=== PATIENT | male | born 1960 | race Caucasian/White ===

== ENCOUNTER 2017-12-25 16:47 | Inpatient (IN) | payer BC ==
[~2017-12-25 16:47] MED LIST: IOPAMIDOL (ISOVUE-300) 100 ML BTL ONE
[2017-12-25] MEDS ORDERED: ERTAPENEM 1 GM VIAL IV ONE (17:35)
--- NOTE | 2017-12-25 17:43 | EDPHY ---
H & P HPI/ROS: Chief complaint: Appendicitis History of present illness: This is a 57-year-old male sent to the emergency department for acute appendicitis. Patient has had intermittent abdominal pain for the last 2 weeks, worsening over the last few days. His primary care doctor got a CT scan today which showed an acute appendicitis. An aneurysm was incidentally noted. Sent here for definitive care. Patient denies other associated signs or symptoms at this time. Review of systems: A 10 point review of systems was obtained and other than described above was negative Smoking Status: Former smoker Physical Exam: General Appearance: Alert, nontoxic. Eyes: Pupils equal and round no pallor or injection. ENT, Mouth: Mucous membranes moist. Respiratory: There are no retractions, lungs are clear to auscultation. Cardiovascular: Regular rate and rhythm. Gastrointestinal: Bowel sounds normal. Abdomen is soft. There is tenderness throughout, most prominent in the right lower quadrant. Neurological: Alert oriented x4. Skin: Warm and dry, no rashes. Musculoskeletal: Neck is supple non tender. Extremities are symmetrical, full range of motion. Psychiatric: Patient is oriented X 3, there is no agitation. Constitutional: Initial Vital Signs Temperature (C) 36.9 C 12/25/17 17:10 Heart Rate 66 12/25/17 17:10 Respiratory Rate 16 12/25/17 17:10 Blood Pressure 154/92 H 12/25/17 17:10 O2 Sat (%) 97 12/25/17 17:10 O2 Delivery Mode Room Air Allergies/Adverse Reactions: No Known Allergies Allergy (Unverified 12/25/17 17:09) Home Medications: Medication Instructions Recorded Atorvastatin Calcium [Lipitor 40 40 mg PO DAILY 12/25/17 mg (*)] Cholecalciferol Vit D3 [Vitamin D3 2,000 units PO DAILY 12/25/17 (*)] Herbals/Supplements -Info Only 1 ea PO DAILY 12/25/17 MDM/Departure - MDM Imaging Results: Imaging Impressions Abdomen CT 12/25/17 14:30 Impression: 1. Appendicitis. 2. There is a 4.3 x 4.3 cm infrarenal abdominal aortic aneurysm noted over a length of 4.9 cm. 3. Segmental age-indeterminate partial thrombus seen in a superior mesenteric venous branch. There is no evidence of portal venous thrombosis. 4. Bilateral renal cortical cysts and bilateral nonobstructive nephrolithiasis. Findings and recommendations for surgical consultation were discussed with SHEBA ROMERO DO at 15:18, on 12/25/2017. Imaging: Discussed imaging studies w/ sheriff's sergeant Radiologist Medications Given: Discontinued Medications Ertapenem (Invanz) 1 gm IV EDNOW ONE PRN Reason: Protocol Stop: 12/25/17 17:36 Last Admin: 12/25/17 18:27 Dose: 1 gm ED Course/Re-evaluation: Patient seen under the supervision of my secondary supervising physician Dr. Ortega Choe. Patient presents to the emergency department for an acute appendicitis. Baseline blood studies are obtained. He is started on Invanz. He is admitted to Dr. Dewey Amador for definitive care. - Depart Disposition: [facility] In[facility] Acute Clinical Impression: Acute appendicitis Qualifiers: Acute appendicitis type: other Qualified Code(s): K35.89 - Other acute appendicitis Condition: Good
[2017-12-25 18:04] LABS: PLATELET COUNT 304 10^3/uL (150-400)
[2017-12-25] MEDS ORDERED: BUPIVACAINE/EPI 0.5% 30 ML SDV ONE (20:21)
--- NOTE | 2017-12-25 20:24 | GHP ---
[f rep st] PREOP HISTORY AND PHYSICAL DATE OF ADMISSION: 12/25/2017 REASON FOR EVALUATION: Appendicitis. HISTORY OF PRESENT ILLNESS: 57-year-old healthy, left-handed male presents to his PCP earlier this afternoon with a 2-week history of waxing, waning white right lower quadrant pain. No prior history of similar complaints. Bowel movements have been soft without significant episodes of diarrhea, change in caliber or blood per rectum. No fevers or chills. Each of his episodes lasted for few days and regressed. He was sent for further imaging by CT this afternoon. Findings disclosed evidence of acute appendicitis. He was sent to the hospital for further workup. The patient's last colonoscopy was approximately 5 years ago. An adenomatous polyp was described for which a repeat colonoscopy is currently due. No family history of colon cancer. Incidentally, the patient was noted to have a 4.3 cm infrarenal abdominal aortic aneurysm. The patient is without complaints of abdominal or prior back pain. He denies a history of claudication or rest pain. He denies a history of stroke or TIA like symptoms. He does report a remote history of dizziness 2 years prior. This was attributed to vertigo at that time. He is a remote drinker and smoker. Currently he vapes. PAST MEDICAL HISTORY: Hypercholesterolemia. PAST SURGICAL HISTORY: None. MEDICATIONS: Atorvastatin. ALLERGIES: No known drug allergies. 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 Remote history of alcohol and tobacco use. Current vaping. FAMILY HISTORY: Notable for a stroke in his mother. REVIEW OF SYSTEMS: Notable for dizziness as noted above. Otherwise, negative 12 point review. PHYSICAL EXAMINATION: VITAL SIGNS: Temperature 36.9, blood pressure 154/90, pulse 66, respirations 16. GENERAL: The patient is alert, appropriate, comfortable, anicteric. No cervical or supraclavicular lymphadenopathy. HEART : Regular without murmurs. LUNGS: Clear bilaterally. ABDOMEN: Soft. Moderate lower quadrant tenderness without rebound or guarding. Notable right lower quadrant firmness. No pulsatile mass. No bruits. Pulses 2+ radial, brachial, carotid, femoral, popliteal, dorsalis pedis and posterior tibial pulses bilaterally. SKIN: Without embolic lesions. NEUROLOGIC: Alert and appropriate. LABORATORY DATA: White count 8, hemoglobin 15, platelets of 304. Electrolytes within reference range. CT abdomen and pelvis, images were directly reviewed on [place]. Notable appendiceal thickening measuring up to 13 mm with periappendiceal inflammatory change. No free air. No free fluid. Incidental infrarenal abdominal aortic aneurysm measuring 4.3 cm with no evidence of iliac aneurysmal disease. IMPRESSION: 1. Acute appendicitis. 2. Incidental infrarenal abdominal aortic aneurysm-4.3 cm. PLAN: 1. Recommend laparoscopic appendectomy. Surgical risks and benefits were explained including bleeding, infection, open conversion, as well as alternative diagnoses. All questions were answered. He and his desire to proceed. 2. Regarding his aneurysm. Subsequent 6 month followup imaging will be coordinated as an outpatient. Would also recommend a further workup to include carotid ultrasonography and a possible cardiac stress imaging for further cardiovascular assessment. /[id number]/MODL MTDD
[2017-12-25] MEDS ORDERED: PROPOFOL 200 MG/20 ML VIAL ONE (21:05)
[2017-12-25] MEDS ORDERED: fentaNYL 100 MCG/2 ML INJ ONE ×2 (21:05→22:44)
[2017-12-25] MEDS ORDERED: LIDOCAINE 2% 5 ML SDV ONE (21:10)
[2017-12-25] MEDS ORDERED: SUGAMMADEX SODIUM 200 MG/2 ML VIAL IVP ONE (21:10)
[2017-12-25] MEDS ORDERED: ONDANSETRON 4 MG/2 ML VIAL ONE (21:10)
[2017-12-25] MEDS ORDERED: KETOROLAC 30 MG/1 ML SDV ONE (21:10)
[2017-12-25] MEDS ORDERED: DEXAMETHASONE 4 MG/ML VIAL ONE ×2 (21:10)
[2017-12-25] MEDS ORDERED: ROCURONIUM 50 MG/5 ML VIAL ONE ×2 (21:10→23:49)
[2017-12-25] MEDS ORDERED: NALOXONE HCL 0.4 MG/ML INJ IVP PRN (21:24)
[2017-12-25] MEDS ORDERED: MEPERIDINE 25 MG/ML SYR IVP PRN (21:24)
[2017-12-25] MEDS ORDERED: PROMETHAZINE HCL 25 MG/ML INJ IVP PRN (21:24)
[2017-12-25] MEDS ORDERED: ONDANSETRON 4 MG/2 ML VIAL IVP PRN (21:24)
[2017-12-25] MEDS ORDERED: OXYCODONE/APAP 5/325 TAB PO PRN (21:24)
[2017-12-25] MEDS ORDERED: fentaNYL 100 MCG/2 ML INJ IVP PRN (21:24)
[2017-12-25] MEDS ORDERED: LR 500 ML IV PRN (21:24)
[2017-12-25] MEDS ORDERED: ACETAMINOPHEN 500 MG TAB PO PRN (21:24)
--- NOTE | 2017-12-25 21:24 | PDANEPAE ---
ANE Past Medical History - Cardiovascular History Hx Hypertension: No Hx Arrhythmias: No Hx Chest Pain: No Hx Coronary Artery / Peripheral Vascular Disease: No Hx CHF / Valvular Disease: No Hx Palpitations: No - Pulmonary History Hx COPD: No Hx Asthma/Reactive Airway Disease: No Hx Recent Upper Respiratory Infection: No Hx Oxygen in Use at Home: No Hx Sleep Apnea: No ANE Review of Systems Review of Systems: - Exercise capacity METS (RN): 4 METS ANE Patient History - Allergies Allergies/Adverse Reactions: No Known Allergies Allergy (Unverified 12/25/17 17:09) - Home Medications Home Medications: Atorvastatin Calcium [Lipitor 40 mg (*)] 40 mg PO DAILY 12/25/17 [Last Taken 04/06] Cholecalciferol Vit D3 [Vitamin D3 (*)] 2,000 units PO DAILY 12/25/17 [Last Taken 3 Days Ago ~12/22/17] Herbals/Supplements -Info Only 1 ea PO DAILY 12/25/17 [Last Taken 1 Week Ago ~] - NPO status NPO Since - Liquids (Date): 12/25/17 NPO Since - Liquids (Time): 14:00 NPO Since - Solids (Date): 12/25/17 NPO Since - Solids (Time): 11:00 - Anes Hx Anes Hx: no prior problems - Smoking Hx Smoking Status: Former smoker - Alcohol Use Alcohol Use: None ANE Labs/Vital Signs - Labs Result Diagrams: 12/25/17 17:45 12/25/17 17:45 - Vital Signs Blood Pressure: 151/76 Heart Rate: 58 Respiratory Rate: 16 O2 Sat (%): 95 Height: 177.8 cm Weight: 67.132 kg ANE Physical Exam - Airway Neck exam: FROM Mallampati Score: Class 1 Mouth exam: dentures - Pulmonary Pulmonary: no respiratory distress, no rales or rhonchi, clear to auscultation - Cardiovascular Cardiovascular: regular rate and rhythym, no murmur, rub, or gallop - ASA Status ASA Status: II, E ANE Anesthesia Plan Anesthesia Plan: general endotracheal anesthesia
--- NOTE | 2017-12-26 00:17 | POSTANESTH ---
Post Anesthetic Evaluation Cardiovascular Status: Normal, Stable, Similar to Pre-Op Cond Respiratory Status: Normal, Stable, Similar to Pre-op Cond. Level of Consciousness/Mental Status: Can Participate in Eval, Mildly Sleepy, Arousable Pain Control: Adequate, Prn Tx Ordered Nausea/Vomiting Control: Adequate, Prn Tx Ordered Complications Possibly Related to Anesthesia: None Noted
--- NOTE | 2017-12-26 00:21 | POSTOPPROG ---
Post Op Note Date of Operation: 12/26/17 Surgeon: Dewey Amador Anesthesiologist: Sharif Boykin Anesthesia: GET(General Endotracheal) Pre-op Diagnosis: Appendicitis Post-op Diagnosis: Same Procedure: Lap ileocecectomy Findings: Appendix eroding into cecum Inf/Abcess present in the surg proc area at time of surgery?: Yes Depth: Organ Space EBL: Minimal Complications: no immediate Specimen(s): ileocecectomy with appendix
[2017-12-26] MEDS ORDERED: ONDANSETRON 4 MG/2 ML VIAL IVP PRN (00:22)
[2017-12-26] MEDS ORDERED: HYDROmorphONE/DILAUDID 1 MG/ML INJ IVP PRN (00:22)
[2017-12-26] MEDS ORDERED: HYDROCODONE/APAP 5/325 TAB PO PRN (00:22)
[2017-12-26] MEDS ORDERED: fentaNYL 100 MCG/2 ML INJ ONE (00:25)
[2017-12-26] MEDS: LR 1,000 ML IV SCH ×2 (00:53→12:12)
[2017-12-26] MEDS: KETOROLAC 15 MG/1 ML SDV IVP SCH ×3 (05:40→17:44)
[2017-12-26] MEDS ORDERED: ERTAPENEM 1 GM VIAL IV SCH (09:00)
--- NOTE | 2017-12-26 09:14 | ASMTCASEMG ---
Living Arrangements What is your living Answers: With Spouse arrangement? Who do you live with? Type Of Residence What kind of residence do Answers: House you live in? Discharge Plan Comments Coordination Status Comments Notes: Pt is a 57 y/o man admitted for an appendicitis. Pt had his appendix removed. Pt will most likely d/c independent when medically stable. No therapies ordered at this time. CM available for changes. Plan: Independent Date Signed: 12/26/2017 09:13 AM Electronically Signed By:RINKU Leonard
--- NOTE | 2017-12-26 12:02 | GOP ---
[f rep st] OPERATIVE REPORT DATE OF OPERATION: 12/25/2017 SURGEON: Dewey Amador MD ANESTHESIA: General. ANESTHESIOLOGIST: Reynaldo Boykin MD PREOPERATIVE DIAGNOSIS: Acute appendicitis. POSTOPERATIVE DIAGNOSIS: Acute appendicitis. PROCEDURE PERFORMED: Laparoscopic ileal cecectomy. FINDINGS: Extensive inflammation between appendix and cecum. INDICATIONS: 57-year-old male with a 2-week history of progressive right lower quadrant abdominal pain. Preoperative workup is suggestive of acute appendicitis. He is undergoing surgical excision at this time. Risks and benefits were explained of bleeding, infection, open conversion, as well as alternative diagnoses. All questions were answered. He desires to proceed. DESCRIPTION OF PROCEDURE: General anesthesia was induced. The abdomen was pre- injected with 0.5% Marcaine with epinephrine. A curvilinear infraumbilical incision was created. The midline fascia was opened vertically. A 10 mm trocar was placed under direct visualization. Two additional left lower quadrant 5 mm ports were inserted. The appendix was massively thickened, inflamed, and eroding into the lateral wall of the cecum. The appendix and right colon were able to be easily elevated out of the retroperitoneum. The abdominal wall adhesions were all lysed, allowing for the proximal colon to be partially mobilized. Extensive time was spent trying to separate the mesoappendix away from the cecum. There was no dissection plane whatsoever, requiring the lateral wall of the cecum to be excised with the specimen. Prior to doing this, the dissection was taken back to the base of the appendix which appeared soft. At this point, the endoscopic CB stapler was placed in the abdominal cavity the appendiceal base amputated. Subsequently, using multiple firings, the lateral wall of the cecum was transected including the adherent appendix. . As the specimen was pulled away, the staple line completely disrupted as a result of staple line failure. The midline fascia was extended inferiorly. An Aston wound protector was applied and the specimen was brought ex vivo. The misfiring of the staple line traversed at the level of the ileocecal valve. Given the quality of the disrupted staple line, this was not felt reparable with the primary repair. The terminal ileum and cecum were subsequently divided using CB 75 staplers. The colon was then further mobilized off the white line of Toldt, allowing for excellent immobilization. A xqoz-dx-qxzp anastomosis was initially created with the defect being closed in hand-sewn fashion with a running PDS suture. The residual aspect of the appendiceal staple line closure was posterior to the initial staple line and this too subsequently fell apart. The anastomosis was moved both proximally and distally and recreated using 2 completely healthy segments of ileum and ascending colon. Again, a qbfe-hr-yikg anastomosis was created with the defect being closed in layered fashion with a running PDS suture. This time the staple lines all appeared nice and hemostatic , with excellent bleeding noting at all cut edges. The anastomosis was noted to be widely patent. The 2 limbs of the ileum and colon were pexed together. The specimen was reduced back in the abdominal cavity. The midline fascia was closed with a running Vicryl suture. The scope was reinserted in the abdominal cavity. The abdomen was irrigated until clear. The anastomosis appeared healthy and viable. The omentum was replaced over the anastomosis lying nicely in the right upper quadrant. Scope was removed uneventfully. The wound was irrigated. Monocryl suture was used to close the skin followed by Dermabond placement. The patient was extubated in operating room, taken to Recovery uneventfully. /[id number]/MODL MTDD
--- NOTE | 2017-12-26 15:33 | SOAPPROG ---
SOAP Progress Note Assessment/Plan: Assessment:s/p lap ileocecectomy - acute appendicitis - no overnight issues. pain controlled. nausea well controlled. no flatus. voiding normally. afebrile. comfortable. abd dist, soft. incis clean. approp tenderness. doing well. cont clear/supportive care/invanz. home 1-2 days when tolerating po. Plan: 12/26/17 15:31 12/26/17 15:32 Objective: Vital Signs Temp Pulse Resp BP Pulse Ox 36.4 C 70 18 111/63 96 12/26/17 11:32 12/26/17 11:32 12/26/17 11:32 12/26/17 11:32 12/26/17 11:32 Laboratory Results 12/25/17 17:45 12/25/17 17:45 12/25/17 12/26/17 12/27/17 05:59 05:59 05:59 Intake Total 1610 Output Total 330 Balance 1280 ICD10 Worksheet Patient Problems: Problems Problem Status Onset Acute appendicitis Acute MRSA (methicillin resistant Staphylococcus aureus) Acute ~06/19/17
[2017-12-26] MEDS: ERTAPENEM 1 GM VIAL IV SCH (17:46)
[2017-12-27] MEDS: KETOROLAC 15 MG/1 ML SDV IVP SCH ×5 (01:02→23:31)
--- NOTE | 2017-12-27 08:25 | SOAPPROG ---
SOAP Progress Note Assessment/Plan: Assessment/Plan: POD#2 s/p ileocecetomy for complicated appendicitis +flatus pain well controlled Ariel clears. OOB RRR CTA Abd soft appropriate tenderness Incision c/d Doing well Adv diet IS/Ambulate Possible d/c later today or tomorrow 12/27/17 08:23 Objective: Vital Signs Temp Pulse Resp BP Pulse Ox 37.0 C 67 16 109/65 94 12/27/17 04:00 12/27/17 04:00 12/27/17 04:00 12/27/17 04:00 12/27/17 04:00 Laboratory Results 12/25/17 17:45 12/25/17 17:45 12/26/17 12/27/17 12/28/17 05:59 05:59 05:59 Intake Total 1610 2570 Output Total 330 Balance 1280 2570 ICD10 Worksheet Patient Problems: Problems Problem Status Onset Acute appendicitis Acute MRSA (methicillin resistant Staphylococcus aureus) Acute ~06/19/17
[2017-12-27] MEDS: ERTAPENEM 1 GM VIAL IV SCH (17:32)
[2017-12-28] MEDS: KETOROLAC 15 MG/1 ML SDV IVP SCH (06:03)
--- NOTE | 2017-12-28 08:15 | SOAPPROG ---
SOAP Progress Note Assessment/Plan: Assessment: slept well last maría. pain well controlled. no nausea. avss. comfortable. abd soft. incis clean. doing well. home today s/p lap ileocecectomy - acute appendicitis - no overnight issues. pain controlled. nausea well controlled. no flatus. voiding normally. afebrile. comfortable. abd dist, soft. incis clean. approp tenderness. doing well. cont clear/supportive care/invanz. home 1-2 days when tolerating po. Plan: 12/26/17 15:31 12/26/17 15:32 12/28/17 08:15 Objective: Vital Signs Temp Pulse Resp BP Pulse Ox 36.8 C 73 16 102/65 93 12/27/17 22:31 12/27/17 22:31 12/27/17 22:31 12/27/17 22:31 12/27/17 22:31 Laboratory Results 12/25/17 17:45 12/25/17 17:45 12/27/17 12/28/17 12/29/17 05:59 05:59 05:59 Intake Total 2570 0 Balance 2570 0 ICD10 Worksheet Patient Problems: Problems Problem Status Onset Acute appendicitis Acute MRSA (methicillin resistant Staphylococcus aureus) Acute ~06/19/17
[2017-12-28 08:24] VITALS: BP 106/60; PULSE 65; RESP 18; TEMP 97.7; O2SAT 95
--- NOTE | 2017-12-28 08:30 | GDS ---
[f rep st] DISCHARGE SUMMARY REASON FOR ADMISSION: Appendicitis. HOSPITAL COURSE: 57-year-old male with a 2-week history of a persistent appendicitis. He underwent a laparoscopic appendectomy. He was found to have a significant concretion between his appendix and colon requiring an ileocecectomy. He had a benign postoperative course. He was discharged to home on postoperative day 3 in improved condition, tolerating a regular diet, afebrile, and with adequate pain control with oral analgesics. He will be seen in followup with Dr. Amador in 1-2 weeks. Full instructions were explained prior to leaving. Other incidental findings included that of a 4.3 cm infrarenal abdominal aortic aneurysm. Arrangements will be made for continued outpatient surveillance. /[id number]/MODL MTDD
== END 2017-12-28 09:41 | disposition home or self-care (01) | DRG 331 ==
LOC: F3E 18:50
PROVIDERS: ADMIT Surgery; ATTEND Surgery
PROC: 0DTJ4ZZ Resection of Appendix, Percutaneous Endoscopic Approach (ICD-10-PCS; principal; 2017-12-25 21:00)
PROC: 0DTH4ZZ Resection of Cecum, Percutaneous Endoscopic Approach (ICD-10-PCS; principal; 2017-12-25 21:00)
DX: K35.89 Other acute appendicitis (principal); I71.4 Abdominal aortic aneurysm, without rupture
CPT/HCPCS: 74177-PO; 96374; J1100; J1335; J1885; J2270; J2405; J2704; J3010; Q9967

== ENCOUNTER → 2018-01-15 | Outpatient (CLI) | payer BC ==
[~2018-01-15] MED LIST changes: +IOPAMIDOL (ISOVUE 370) 100 ML BTL IV ONE; -IOPAMIDOL (ISOVUE-300) 100 ML BTL ONE
== END ==
LOC: CIMAGING 14:15
PROVIDERS: ATTEND Surgery
DX: I72.8 Aneurysm of other specified arteries (principal); I65.23 Occlusion and stenosis of bilateral carotid arteries
CPT/HCPCS: 70498-PO; Q9967